=== PATIENT | female | born 1965 | race African-American/Black ===

== ENCOUNTER 2017-11-29 19:18 | Emergency (ER) | payer MEDICAID, OTHER ==
[~2017-11-29] VITALS: Ht 167.6 cm; Wt 74.8 kg
[2017-11-29 21:15] LABS: Basophils # (auto) 0 uL; Basophils % (auto) 0.6 % (0.0-2.0); Eosinophils # (auto) 0.3 uL; Eosinophils % (auto) 4.1 % (0.0-7.0); Hematocrit 39.1 % (36.0-46.0); Hemoglobin 13.2 g/dL (12.2-16.2); Lymphocytes # (auto) 3.1 uL; Lymphocytes % (auto) 46.9 % (10.0-50.0); Mean Corpuscular Hemoglobin 28.4 pg (28.0-32.0); Mean Corpuscular Hgb Conc. 33.8 g/dL (32.0-36.0); Mean Corpuscular Volume 84.1 fL (80.0-100.0); Monocytes # (auto) 0.4 uL; Monocytes % (auto) 5.8 % (0.0-12.0); Neutrophils # (auto) 2.8 uL; Neutrophils % (auto) 42.6 % (37.0-80.0); Nucleated Red Blood Cells % 0.1 %; Platelet Count (auto) 345 10^3/uL (140-450); Red Blood Cells 4.66 10^6/uL (4.0-5.20); Red Cell Distribution Width 14.2 % (11.8-14.3); White Blood Cell 6.5 10^3/uL (4.4-10.8)
[2017-11-29 21:36] LABS: Albumin 3.7 g/dL (3.4-5.0); BUN/Creatinine Ratio 15.6; Calcium 8.9 mg/dL (8.5-10.1); Potassium 3.6 mmol/L (3.5-5.1)
[2017-11-29 21:39] LABS: Bilirubin, Total 0.5 mg/dL (0.2-1.0); Total Protein 7.6 g/dL (6.4-8.2)
[2017-11-29 21:41] LABS: INR 0.91 (0.9-1.15); Partial Thromboplastin Time 26.6 sec (22.64-33.71); Prothrombin Time 9.9 sec (9.37-12.3)
[2017-11-29 22:48] VITALS: BP 132/87
== END 2017-11-30 00:36 | disposition home or self-care (01) ==
LOC: ER 19:18
DX: M79.652 Pain in left thigh (principal); I10 Essential (primary) hypertension; Z88.0 Allergy status to penicillin
CPT/HCPCS: 36415; 80053; 85025; 85610; 85730; 93971

== ENCOUNTER 2025-07-09 07:17 | Day surgery (SDC) | payer MEDICAID ==
[~2025-07-09] VITALS: Ht 167.6 cm; Wt 84.8 kg
[2025-07-09] VITALS (10 sets, daily range): BP systolic 120–144; BP diastolic 74–85; PULSE 60–69; RESP 18–20; TEMP 98; O2SAT 94–97
[~2025-07-09 07:17] MED LIST: ALBU108A5 IN; AMLO1TAB23 PO; FLUT1AER11 IN; LOSA-533 PO
[2025-07-09] MEDS: HEPARIN SODIUM (PORCINE) 5000 UNITS/ML 1ML VIAL ONE (09:26)
[2025-07-09] MEDS: fentaNYL CITRATE 100 MCG/2 ML VL ONE (09:26)
[2025-07-09] MEDS: VERAPAMIL 2.5MG/ML INJ 2ML VIAL IV ONE (09:26)
[2025-07-09] MEDS: ANGIOMAX 250 MG VIAL IV ONE (09:26)
[2025-07-09] MEDS: LIDOCAINE 2%HCL (LOCAL ANESTH.) INJ 20ML MDV ONE (09:27)
[2025-07-09] MEDS: MIDAZOLAM HCL 2MG/2ML 2ml VIAL (1mg/ml) ONE (09:27)
[2025-07-09] MEDS: SODIUM CHL 0.9% 0 ML ONE (09:27)
--- NOTE | 2025-07-09 10:32 | DVHOP2 ---
Operative Report Operative Report CARDIAC REVENUE ENFORCEMENT AGENT PROCEDURE REPORT [place], [place] Date of Service: 07/09/25 Grain Farmworker: Alvino Arreaga MD PROCEDURES PERFORMED: Coronary angiogram, , conscious sedation administration and supervision, less than 15 minutes; fluoroscopy use and interpretation. PREOPERATIVE DIAGNOSES: Abnormal stress test with CCS class 3 angina, POSTOP DIAGNOSIS: chest pain DESCRIPTION OF PROCEDURE: The patient or appropriate family signed informed consent understanding the risks, benefits and alternatives of the procedure, they wished to proceed. The patient was brought to the cardiac film laboratory technician in [place] state. The patient was prepped in a sterile fashion. Sedation was used per cardiac cath protocol. the pulse was very weak so I used US guidance and identified the Right radial artery. I administered 2 mL of 2% lidocaine to the right wrist. With an antegrade front wall puncture. I cannulated the right radial artery and placed a 6-Danish Glidesheath slender. Next, an intra-arterial spasmolytic was administered. Next, a - 5 Danish [place] catheter a and were used for coronary angiogram and pressure pullback. At the completion of procedure, all guides and wires were removed, and there were no immediate complications. 4000 U of IV heparin given FINDINGS: RCA: Moderate vessel off the right sinus of Valsalva, there is no severe flow limiting stenosis. LEFT MAIN: Moderate size left main, it bifurcates into LAD and circumflex. no stenosis CIRCUMFLEX: Moderate caliber vessel coming off the left main with no flow limiting stenosis. LAD: LAD is a moderate caliber vessel coming of the left main. no stenosis CONCLUSIONS: 1. no severe cad PLAN: Aggressive risk factor modification and medical management for the patient. ALVINO ARREAGA MD Jul 09, 2025 10:32
== END 2025-07-09 12:45 | disposition home or self-care (01) ==
LOC: CATH 07:17
PROVIDERS: ATTEND Internal Medicine
DX: R94.39 Abnormal result of other cardiovascular function study (principal); I20.89 Other forms of angina pectoris; F17.210 Nicotine dependence, cigarettes, uncomplicated; F12.90 Cannabis use, unspecified, uncomplicated; Z79.899 Other long term (current) drug therapy; Z88.0 Allergy status to penicillin
CPT/HCPCS: 93454; C1769; C1894; J1644; J2250; J3010